=== PATIENT | female | born 1955 | race Caucasian/White ===

== ENCOUNTER → 2021-06-10 | Outpatient (CLI) | payer MEDICARE | LOC: COL.RAD 14:04 | DX: Z12.2 Encounter for screening for malignant neoplasm of respiratory organs (principal); F17.210 Nicotine dependence, cigarettes, uncomplicated ==

== ENCOUNTER → 2022-06-22 | Outpatient (CLI) | payer MEDICARE | LOC: COL.RAD 06-11 10:30 | DX: Z12.2 Encounter for screening for malignant neoplasm of respiratory organs (principal); Z87.891 Personal history of nicotine dependence ==

== ENCOUNTER → 2024-02-23 | Outpatient (CLI) | payer MEDICARE ==
[~2024-02-23] MED LIST: CELEBREX 200MG200 MG PO; COZAAR 50MG50 MG/TAB PO; CRESTOR20 MG PO; DESYREL 50MG50 MG PO; GLUCOPHAGE XR500 M1 PO
== END ==
LOC: MC.RAD 07:38
DX: Z12.31 Encounter for screening mammogram for malignant neoplasm of breast (principal)